=== PATIENT | male | born 1975 | race Caucasian/White ===

== ENCOUNTER 2019-11-26 03:12 | Emergency (ER) | payer OTHER, SELFPAY ==
[2019-11-26 03:19] VITALS: BP 145/92; PULSE 68; RESP 16; TEMP 36.6; O2SAT 98; BMI 27.7
[2019-11-26] MEDS: KETOROLAC 60 MG/2 ML VIAL 30 MG IM (03:36)
[2019-11-26] MEDS: OXYCODONE/ACETAMINOPHEN 5/325 TABLET 1 TAB PO (03:47)
[2019-11-26] MEDS: OXYCODONE/APAP 5/325 PREPACK 1 BOTTLE MISC (03:47)
--- NOTE | 2019-11-26 03:51 | ED_ITS ---
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 He decided to go home and after driving short drive home was having difficulty getting out of his car due to the severity of pain. He describes no recent fevers, cough or other illness. Takes no medication, has not had any recent spinal procedures, no recent trauma to the spine or pelvis and has no history of IV drug use. He notes that the pain is focused in the lower lumbar area left lateral with pain more severe with left leg raising and no associated numbness, saddle paresthesia, weakness or change to bowel or bladder habits. He also notes that he has been having some difficulty with his knee on the opposite side recently and is currently seeing a physical therapist. Related Data Allergies Allergy/AdvReac Type Severity Reaction Status Date / Time No Known Drug Allergies Allergy Verified 11/26/19 03:22 Review of Systems Review of Systems Narrative: Remainder of review of systems including constitutional, ENT, cardiovascular, respiratory, GI, , musculoskeletal, skin, neurologic and psychiatric systems reviewed and are unremarkable except as noted in HPI. Patient History Medical History Healthy adult (Acute) Social History Smoking Status: Never smoker Smoking Status: Never smoker alcohol intake frequency: a few times a week Substance Use Type: does not use Exam Narrative Exam Narrative: General: Alert appropriate in no acute distress Respiratory: Able to speak in full sentences, no obvious respiratory distress Skin: No obvious rashes, warm and dry Neurologic: Grossly intact no obvious asymmetries or abnormalities. Full sensation to both lower extremities with no weakness and 2+ patellar reflexes bilaterally Spine: No midline tenderness. Paraspinous muscle spasm lateral to L2 through L4 without any acute bony tenderness, warmth or skin changes or rashes Psych, appropriate insight and affect, cooperative Initial Vital Signs Initial Vital Signs: Vital Signs Temperature 97.9 F 11/26/19 03:19 Pulse Rate 68 11/26/19 03:19 Respiratory Rate 16 11/26/19 03:19 Blood Pressure 145/92 H 11/26/19 03:19 Pulse Oximetry 98 11/26/19 03:19 Course Orders Ordered: Discontinued Medications Ketorolac Tromethamine (Toradol) 30 mg IM NOW ONE Stop: 11/26/19 03:33 Last Admin: 11/26/19 03:36 Dose: 30 mg Documented by: RMARTIN Oxycodone/Acetaminophen (Percocet 5/325) 1 tab PO NOW ONE Stop: 11/26/19 03:41 Last Admin: 11/26/19 03:47 Dose: 1 tab Documented by: RMARTIN Oxycodone/Acetaminophen (Endocet 5/325 Prepack) 1 bottle MISC SEEINSTR ONE Stop: 11/26/19 03:41 Last Admin: 11/26/19 03:47 Dose: 1 bottle Documented by: RMARTIN Vital Signs Vital signs: Vital Signs - 8 hr 11/26/19 03:19 Temperature 97.9 F Pulse Rate 68 Respiratory Rate 16 Blood Pressure 145/92 H Pulse Oximetry 98 MDM - Back Pain/Injury MDM Narrative Medical decision making narrative: 43-year-old gentleman with fairly classic presentation for acute low back strain without radicular findings or evidence of epidural abscess or intra-abdominal pathology. He is given a shot of Toradol single Percocet and is at least tolerating pain enough to return home. Will talk about nonsteroidals rest and recommended physical therapy with manual component. he is safe for home discharge Discharge Plan Departure Patient Disposition: Home Clinical Impression: Strain of lumbar region Qualifiers: Encounter type: initial encounter Qualified Code(s): S39.012A - Strain of muscle, fascia and tendon of lower back, initial encounter Instructions: DI for Back Strain or Sprain Activity Restrictions/Additional Instructions: Thank you for coming in today As we talked about, there are no ?red flags? for severe back complications. You clearly have strained the muscles and you are going to hurt more over the next 48 hours. Using 400 mg of ibuprofen (2 [id number] pills) and 1 Tylenol every 6 hours can be very helpful in controlling pain., for more severe pain using 400 mg of ibuprofen and 1 Percocet will be helpful. Ice to the area can help and gentle movement is actually more beneficial than complete bed rest. Consider physical therapy or osteopathic therapy to look at some of the underlying reasons that your body is responding the way that it is. Often time it is because of dysfunction in 1 area that is causing another area to overuse muscles and finding the initial problem can prevent pain and keep you healthy or overall. Tab morales, in [place], may be very helpful and I would strongly recommend at least 1 or 2 visits. It is a very appropriate to continue with your current therapist if your finding benefit with that as well. Please follow-up with your primary care physician within the next week if things are not improving. If you have increasing pain, inability to urinate or develop any fevers within the next 1-3 days please return to the emergency room for further evaluation. I hope you feel better Ekaterina Charlton Physical therapist in [place], [place] Address: [id number], [place] [address] Stand Alone Forms: Work Release Note
[2019-11-26 04:16] VITALS: BP 134/85; PULSE 69; RESP 16; O2SAT 99
== END 2019-11-26 04:17 | disposition home or self-care (01) ==
PROVIDERS: Emergency Provider Emergency Medicine
DX: S39.012A Strain of muscle, fascia and tendon of lower back, initial encounter (principal); Y99.0 Civilian activity done for income or pay
CPT/HCPCS: 96372; 99283; J1885

== ENCOUNTER → 2021-01-15 11:55 | Outpatient (CLI) | payer OTHER, SELFPAY ==
--- NOTE | 2021-01-15 | DI.RAD.S_ITS ---
PROCEDURE: XR CALCANEOUS LT MIN 2V INDICATIONS: LATERAL PAIN OF HEEL TECHNIQUE: Two views of the calcaneus were acquired. COMPARISON: None. FINDINGS: Bones: No fractures or dislocations. Small plantar calcaneal enthesophyte. No suspicious bony lesions. Soft tissues: No suspicious calcifications. Achilles tendon appears normal. IMPRESSION: No acute osseous abnormality. Dictated by: Efren Berger M.D. on 01/15/2021 at 12:56 Approved by: Efren Berger M.D. on 01/15/2021 at 13:09
== END ==
PROVIDERS: PCP Acupuncturist; Referring Provider Acupuncturist; Visit Provider Acupuncturist
DX: M79.672 Pain in left foot (principal)
CPT/HCPCS: 73650

== ENCOUNTER → 2024-01-27 08:44 | Outpatient (CLI) | payer OTHER, SELFPAY ==
--- NOTE | 2024-01-27 08:46 | DI.RAD.S_ITS ---
PROCEDURE: XR FEMUR LT MIN 2V INDICATIONS: Left thigh pain, left thigh injury TECHNIQUE: 2 views of the femur were acquired. COMPARISON: None. FINDINGS: Bones: No fractures or dislocations. No suspicious bony lesions. Soft tissues: No suspicious soft tissue calcifications or masses. IMPRESSION: No acute bony abnormality. Dictated by: Katia Corrales MD, PhD on 01/27/2024 at 9:14 Approved by: Katia Corrales MD, PhD on 01/27/2024 at 9:15
== END ==
PROVIDERS: Referring Provider Physician Assistant Surgical; Visit Provider Physician Assistant Surgical
DX: M79.652 Pain in left thigh (principal)
CPT/HCPCS: 73552